=== PATIENT | female | born 1940 | race Caucasian/White ===

== ENCOUNTER 2018-09-29 18:28 | Emergency (ER) | payer OTHER, MEDICARE ==
[~2018-09-29] VITALS: Ht 165.1 cm; Wt 64.4 kg
[2018-09-29 18:34] VITALS: BP_SYST 191
--- NOTE | 2018-09-29 19:11 | NUR ---
Laurent mcgregor in EDM - 09/29/18 at 1918 by [email or web address] Placed in room 03 . Placed on brick kiln burner, blood pressure machine and pulse oximeter. To gown for exam. Side rails up.
--- NOTE | 2018-09-29 19:15 | NUR ---
Patient to ER via triage for evaluation of left lower leg pain x 1 week. Patient denies trauma/injury, patient is awake, alert and oriented in no acute distress, BP elevated but vital signs otherwise stable, respirations even and unlabored, skin warm and dry to touch. Awaiting evaluation by ER MD, will continue to observe and assess.
--- NOTE | 2018-09-29 19:15 | NUR ---
Patient to ER bed 7 for evaluation.
[2018-09-29 19:23] LABS: EOSINOPHILS # (AUTO) 0.1 K/uL (0.0-0.4); MONOCYTES # (AUTO) 0.5 K/uL (0.0-1.0)
[2018-09-29 19:28] LABS: BASOPHILS # (AUTO) 0.1 K/uL (0.0-0.2); BASOPHILS % (AUTO) 1.5 % (0.0-2.0); EOSINOPHILS % (AUTO) 1.4 % (0.0-4.0); HEMATOCRIT 38.6 % (36-48); HEMOGLOBIN 12.6 g/dL (12.0-16.0); LYMPHOCYTES # (AUTO) 1.8 K/uL (1.0-5.5); LYMPHOCYTES % (AUTO) 26.3 % (20.5-51.5); MEAN CORPUSCULAR HEMOGLOBIN 32 pg (27-31); MEAN CORPUSCULAR HGB CONC 33 % (32-36); MEAN CORPUSCULAR VOLUME 96 fL (79.0-98.0); MONOCYTES % (AUTO) 6.7 % (1.7-9.3); NEUTROPHILS # (AUTO) 4.4 K/uL (1.8-7.7); NEUTROPHILS % (AUTO) 64.1 % (40.0-70.0); RED BLOOD CELL COUNT(AUTO) 4.02 MIL/uL (4.2-6.2); WHITE BLOOD COUNT (AUTO) 6.9 K/uL (4.8-10.8)
[2018-09-29 19:34] LABS: ANION GAP 7 (5-15); CALCIUM 8.9 mg/dL (8.4-11.0); CHLORIDE 102 mmol/L (98-107); GLUCOSE 102 mg/dL (70-99); POTASSIUM 3.9 mmol/L (3.5-5.1); SODIUM SERUM 137 mmol/L (136-145); UREA NITROGEN, BLOOD 25 mg/dL (8-21)
[2018-09-29 19:39] LABS: ALANINE AMINOTRANSFERASE 21 U/L (12-78); ALBUMIN 3.5 g/dL (3.4-4.8); ASPARTATE AMINOTRANSFERASE 22 U/L (10-37); TOTAL BILIRUBIN 0.4 mg/dL (0.0-1.0)
[2018-09-29 19:40] LABS: PLATELET COUNT (AUTO) 156 K/uL (130-430)
--- NOTE | 2018-09-29 20:15 | NUR ---
Patient resting quietly in no acute distress, assessment remains unchanged.
--- NOTE | 2018-09-29 20:40 | NUR ---
ER at bedside examining patient.
[2018-09-29] MEDS ORDERED: HYDROcodone/ACETAMIN 5-325 MG TAB (NORCO/ VICODIN) PO ONE (21:00)
--- NOTE | 2018-09-29 21:00 | NUR ---
Patient resting quietly in no acute distress, no adverse reaction noted to medication.
[2018-09-29 21:50] VITALS: BP_SYST 168
--- NOTE | 2018-09-29 21:50 | NUR ---
Patient given written and verbal discharge instructions and verbalizes understanding. ER MD discussed with patient the results and treatment provided. Patient in stable condition. ID arm band removed. Rx of [place] given. Patient educated on pain management and to follow up with PMD. Pain Scale 0. Opportunity for questions provided and answered. Medication side effect fact sheet provided. Patient left ER in no acute distress, patient taken to car via wheelchair and assisted into car without incident, no trauma/injury while getting into car. Family at her side, no adverse reaction noted to medication.
== END 2018-09-29 21:50 | disposition home or self-care (01) ==
LOC: SED 18:28
DX: M79.662 Pain in left lower leg (principal); R03.0 Elevated blood-pressure reading, without diagnosis of hypertension; Z88.2 Allergy status to sulfonamides
CPT/HCPCS: 36415; 71046-TC; 80053; 83880; 84443-TC; 85025; 85610-TC; 85730-TC; 93971; 99284